=== PATIENT | male | born 1965 | race Caucasian/White ===

== ENCOUNTER → 2025-01-30 | Outpatient (CLI) | payer BC | END | disposition home or self-care (01) | LOC: RAD 09:55 | PROVIDERS: ATTEND Internal Medicine | DX: I45.10 Unspecified right bundle-branch block (principal); R06.02 Shortness of breath; I51.7 Cardiomegaly; I51.89 Other ill-defined heart diseases | CPT/HCPCS: 78452; 93306; 93017; J2785; A9500 ==